=== PATIENT | male | born 1980 | race Caucasian/White ===

== ENCOUNTER 2017-06-24 08:25 | Day surgery (SDC) | payer BC ==
[2017-06-20 10:22] VITALS: BMI 33.2
[~2017-06-24 08:25] MED LIST: LACTATED RINGERS 1,000 ML IV SCH
[2017-06-24] MEDS ORDERED: LACTATED RINGERS 1,000 ML IV ONE (08:35)
[2017-06-24 08:36] VITALS: RESP 18; TEMP 98
[2017-06-24] MEDS ORDERED: LIDOCAINE 1% 20 ML VIAL (10MG/ML) FOR IV START INTRADERMA ONE (08:36)
[2017-06-24] MEDS ORDERED: LIDOCAINE 1% INJ 10MG/ML (20 ML MDV) ONE (09:24)
[2017-06-24] MEDS ORDERED: PROPOFOL 10 MG/ML 20 ML VIAL IV ONE (09:24)
--- NOTE | 2017-06-24 09:55 | P.PCN ---
Date of Procedure: 06/24/17 Preoperative Diagnosis: Postoperative Diagnosis: Procedure(s) Performed: Procedure: Total colonoscopy and biopsy. Preoperative diagnosis: History of rectal bleeding and recent bout of diverticulitis. Postoperative diagnosis: 1. Sigmoid diverticulosis with no evidence of acute diverticulitis or strictures. 2. Diminutive polyp in the rectum biopsied but no large polyps or cancer. 3. Low-grade internal hemorrhoids without bleeding at the time of this exam. Preparation: HalfLytely prep. Sedation: Was provided by anesthesia. Brief clinical history: The patient is a 36-year-old male who I have evaluated in the office in March because of recent bout of diverticulitis and finding of blood in his stools. No family history of colon cancer. This would be his first colonoscopy. Procedure: With the patient on his left lateral decubitus position and after informed consent and adequate sedation, the perianal area was inspected and it did not show any fissures or fistulas. There were no masses felt on digital rectal examination. The Olympus CFQ 160L video colonoscope was then inserted in the rectum in the usual fashion and advanced to the cecum. There were few small diverticular orifices seen scattered in the sigmoid with no evidence of acute diverticulitis or strictures. There was a diminutive polyp in the rectum close to the rectosigmoid junction which I biopsied but there were no large polyps or cancer. The mucosa appeared healthy with no evidence of spontaneous bleeding. I retroflexed the endoscope in the rectum before the endoscope was withdrawn. Low-grade internal hemorrhoids was noted but there was no evidence of bleeding. The patient tolerated the procedure well. Plan: The patient was reassured. Discussed dietary measures and local care for hemorrhoids. He will follow up with you as planned and I recommended repeat exam in 10 years. Implants: Indications for Procedure: Operative Findings: Description of Procedure:
[2017-06-24 10:03] VITALS: BP 134/94; PULSE 63
== END 2017-06-24 10:30 | disposition home or self-care (01) ==
LOC: ORWHC2ENDO 08:25
DX: K62.1 Rectal polyp (principal); K57.30 Diverticulosis of large intestine without perforation or abscess without bleeding; K64.8 Other hemorrhoids; Z79.1 Long term (current) use of non-steroidal anti-inflammatories (NSAID)
CPT/HCPCS: 88305; 45380; J2001; J2704

== ENCOUNTER 2018-08-08 00:23 | Emergency (ER) | payer BC ==
[2018-08-08 00:32] VITALS: RESP 18
--- NOTE | 2018-08-08 03:01 | ED ---
Skin/Abscess/FB HPI - General Chief complaint: Skin/Abscess/Foreign Body Stated complaint: facial swelling Time Seen by Provider: 08/08/18 02:26 Source: patient Mode of arrival: ambulatory Limitations: no limitations - History of Present Illness Initial comments: This patient is a 38-year-old man who presents to be evaluated for the development of facial pain and swelling. The patient has noted over approximately the past 24 hours that he is getting some swelling to the pre- maxillary area. MD complaint: abscess/boil Onset/Timin -: days(s) Tetanus Up to Date: yes Location: face Quality: aching Consistency: constant Improves with: none Worsens with: palpation Context: none Associated symptoms: denies other symptoms Treatments Prior to Arrival: none - Related Data Home Medications Medication Instructions Recorded Confirmed Ibuprofen [Motrin] 200 - 400 mg PO Q6HR PRN 09/25/16 06/20/17 Previous Rx's Medication Instructions Recorded Amoxicillin/Potassium Clav 1 tab PO Q12HR #14 tab 08/08/18 [Augmentin 875-125 Tablet] Allergies Allergy/AdvReac Type Severity Reaction Status Date / Time No Known Allergies Allergy Verified 08/08/18 00:31 Review of Systems ROS Statement: Those systems with pertinent positive or pertinent negative responses have been documented in the HPI. ROS Other: All systems not noted in ROS Statement are negative. Past Medical History Past Medical History: Renal Disease, Vascular Disorder Additional Past Medical History / Comment(s): hx blood in stool, mono at 18-18 years old History of Any Multi-Drug Resistant Organisms: None Reported Past Surgical History: No Surgical Hx Reported Past Anesthesia/Blood Transfusion Reactions: No Reported Reaction Past Psychological History: No Psychological Hx Reported Smoking Status: Current every day smoker Past Alcohol Use History: Occasional Past Drug Use History: None Reported - Past Family History Father Family Medical History: Diabetes Mellitus Mother Family Medical History: No Reported History General Exam Limitations: no limitations General appearance: alert, in no apparent distress Head exam: Present: atraumatic, normocephalic Eye exam: Present: normal appearance, PERRL, EOMI. Absent: scleral icterus, conjunctival injection, periorbital swelling, periorbital tenderness ENT exam: Present: other (Patient has a small amount of pre-maxillary warmth and edema. No discrete fluctuant area that is amenable to drainage. There is tenderness to palpation.) Neck exam: Present: normal inspection, full ROM. Absent: lymphadenopathy Respiratory exam: Present: normal lung sounds bilaterally. Absent: respiratory distress, wheezes, rales, rhonchi Cardiovascular Exam: Present: regular rate, normal rhythm, normal heart sounds. Absent: systolic murmur, diastolic murmur, rubs, gallop Skin exam: Present: warm, dry, intact, normal color. Absent: rash Course Vital Signs 08/08/18 08/08/18 00:27 03:28 Temperature 98.4 F 98.0 F Pulse Rate 71 74 Respiratory 18 18 Rate Blood Pressure 116/72 119/70 O2 Sat by Pulse 99 99 Oximetry Medical Decision Making - Medical Decision Making Patient's 38-year-old man with what appears to be odontogenic infection, probably early premaxillary abscess. There is no discrete area that may be drained at the moment. Patient started on antibiotics and we discussed appropriate further care and follow-up as well as return parameters. Disposition Clinical Impression: Facial abscess Disposition: HOME SELF-CARE Condition: Good Instructions: Abscess (ED) Prescriptions: Amoxicillin/Potassium Clav [Augmentin 875-125 Tablet] 1 tab PO Q12HR #14 tab Is patient prescribed a controlled substance at d/c from ED?: No Referrals: Matthew Sanders DO [Primary Care Provider] - 1-2 days Ryan Ramey MD [STAFF PHYSICIAN] - 1-2 days
[2018-08-08] MEDS ORDERED: ACET/COD 300 MG/30 MG STARTER PACK 6 TAB BTL PO STA (03:02)
[2018-08-08] MEDS ORDERED: AMOXIC-POT CLAV 875MG STARTER 2 EACH TABLET PO STA (03:02)
[2018-08-08 03:29] VITALS: BP 119/70; PULSE 74; TEMP 98
--- NOTE | 2018-08-09 07:53 | CDI ---
Documentation Clarification OP Dear Kory SANCHEZ MD Please do addendum to ED report for Physical exam and MDM. Thank you, Shruti Montes Diesel Engineer If you have any question, Please contact patient services manager at [phone] [facility]
== END 2018-08-08 03:22 | disposition home or self-care (01) ==
LOC: EC 00:23
DX: L02.01 Cutaneous abscess of face (principal); F17.200 Nicotine dependence, unspecified, uncomplicated
CPT/HCPCS: 99283

== ENCOUNTER → 2019-08-19 | Outpatient (CLI) | payer BC ==
--- NOTE | 2019-08-19 09:48 | XR ---
EXAMINATION TYPE: XR chest 2V DATE OF EXAM: 08/19/2019 COMPARISON: NONE HISTORY: Chest pain TECHNIQUE: Frontal and lateral views of the chest are obtained. FINDINGS: There is no focal air space opacity. No evidence for pneumothorax. No pleural effusion. The cardiac silhouette size is within normal limits. The osseous structures are grossly intact. IMPRESSION: 1. No acute cardiopulmonary process.
== END | disposition home or self-care (01) ==
LOC: RADXRYALE 08:57
PROVIDERS: ATTEND Physician Assistant Medical
DX: R05 Cough (principal); F17.210 Nicotine dependence, cigarettes, uncomplicated
CPT/HCPCS: 71046

== ENCOUNTER → 2019-08-27 | Outpatient (CLI) | payer BC ==
--- NOTE | 2019-08-27 17:41 | EST ---
EXERCISE STRESS AGE: 39 SEX: Male HT: 73 WT: 248 PROTOCOL: Sha STAGE: IV DURATION OF EXERCISE: 10:00 HEART RATE REST: 82 BLOOD PRESSURE REST: 160/88 MAXIMUM HEART RATE ACHIEVED: 155 MAXIMUM BLOOD PRESSURE: 175/98 85% MPHR: 153 100% MPHR: 180 METS: 11.7 INDICATIONS: Chest pain. CLINICAL INFORMATION: This is a 39-year-old male patient referred by Dr. Matthew Sanders for an exercise stress echo. Baseline heart rate 82 beats per minute. Baseline blood pressure 160/88 mmHg. Baseline 12-lead ECG showed normal sinus rhythm with normal cardiac intervals. Patient exercised on a Sha protocol for 10 minutes, achieving a peak heart rate of 155 beats per minute, normal blood pressure response. There was no ECG evidence for ischemia. No arrhythmias noted. The baseline 2D echo images showed normal LV size and systolic function without segmental wall motion abnormalities. At peak exercise there was excellent augmentation of overall LV contractility without development of any wall motion abnormalities. At recovery, regional global LV systolic function remained normal. IMPRESSION: No ECG or echocardiographic evidence for ischemia. MMODL / IJN: [id number] /
== END | disposition home or self-care (01) ==
LOC: RADNMMAIN 08:43
PROVIDERS: ATTEND Family Medicine
DX: R07.9 Chest pain, unspecified (principal)
CPT/HCPCS: 93017

== ENCOUNTER 2020-03-24 12:35 | Day surgery (SDC) | payer BC ==
[2020-03-24 13:43] VITALS: RESP 18; TEMP 98.3
[2020-03-24 14:28] VITALS: BP 118/76; PULSE 70
--- NOTE | 2020-03-24 14:56 | US ---
ULTRASOUND GUIDED CORE BIOPSY RIGHT SUBMANDIBULAR MASS: CLINICAL HISTORY: Right submandibular mass FINDINGS: The procedure was explained to the patient. The risks, complications, benefits and alternatives were discussed and any questions were answered. Informed consent was obtained. Patient was placed supin e on the ultrasound table and prepped and draped in the usual sterile fashion. Utilizing a 18-gauge core biopsy needle, 3 passes were made into the requested mass. Patient was stable throughout the procedure. Pathology is pending. All elements of maximal barrier and sterile technique were utilized. IMPRESSION: 1. Successful ultrasound guided core biopsy of the requested right neck mass.
== END 2020-03-24 14:20 | disposition home or self-care (01) ==
LOC: RADPROMAIN 12:35
PROVIDERS: ATTEND Otolaryngology
DX: R22.1 Localized swelling, mass and lump, neck (principal)
CPT/HCPCS: 10005; 20206; 88305

== ENCOUNTER 2020-05-04 07:11 | Day surgery (SDC) | payer BC ==
[2020-05-02 11:18] VITALS: BMI 32.7
[~2020-05-04 07:11] MED LIST changes: +DEXAMETHASONE SOD PHOSPHATE 10 MG/ML 1 ML VIAL IV ONE; +FAMOTIDINE 20 MG/2 ML VIAL IV ONE; -LACTATED RINGERS 1,000 ML IV SCH; +ONDANSETRON 4 MG/2 ML VIAL IVP ONE
[2020-05-04] MEDS ORDERED: LIDOCAINE 1% (10MG/ML) FOR IV START INTRADERMA ONE (07:45)
[2020-05-04] MEDS ORDERED: LACTATED RINGERS 1,000 ML IV ONE (07:46)
[2020-05-04] MEDS ORDERED: ONDANSETRON 4 MG/2 ML VIAL ONE (07:47)
[2020-05-04] MEDS ORDERED: DEXAMETHASONE SOD PHOSPHATE 10 MG/ML 1 ML VIAL ONE (08:42)
[2020-05-04] MEDS ORDERED: MIDAZOLAM 2 MG/2 ML VIAL ONE (08:42)
[2020-05-04] MEDS ORDERED: LIDOCAINE 1% INJ 10MG/ML (20 ML MDV) ONE (08:42)
[2020-05-04] MEDS ORDERED: SUCCINYLCHOLINE CHLORIDE VIAL 200 MG/10 ML VIAL IV ONE (08:42)
[2020-05-04] MEDS ORDERED: PROPOFOL 10 MG/ML 20 ML VIAL IV ONE (08:42)
[2020-05-04] MEDS ORDERED: fentaNYL (PF) 50 MCG/ML 2 ML AMP ONE (08:42)
[2020-05-04] MEDS ORDERED: LIDOCAINE 1%-EPI 1:100,000 20 ML VIAL SQ ONE ×2 (09:08)
--- NOTE | 2020-05-04 10:09 | P.OP ---
Date of Procedure: 05/04/20 Preoperative Diagnosis: Right cervical lymphadenopathy Postoperative Diagnosis: Same Procedure(s) Performed: Excision right cervical lymph nodes Anesthesia: PEDRO Surgeon: John Hayes Estimated Blood Loss (ml): 5 Pathology: other (Right cervical lymph node) Condition: stable Disposition: PACU Indications for Procedure: Is a 39-year-old white male who is a progressively enlarging right cervical lymph node. He's had biopsies on 2 different occasions including core biopsy which is felt to be benign. Despite this, this progressively enlarges. Operative Findings: Approximate 5 cm right cervical lymph node inferior to submandibular gland which is well-circumscribed, 2 additional adjacent lymph nodes each 1.5 x 2 cm also excised Description of Procedure: The patient was brought in the operative suite and placed in a supine position. The patient underwent induction of general anesthesia with oral endotracheal intubation without difficulty. The patient was prepped and draped in usual aseptic fashion. 1% lidocaine with 1-100,000 epinephrine was infused subcutaneously at the incision site. Incision was then made right transverse cervical 3 fingerbreadths below the body of the mandible and carried sharply through the skin and subcutaneous tissue and platysma layer. The largest of the lymph nodes was encountered and was dissected from the surrounding tissue grossly entirely. The marginal mandibular branch of the facial nerve was identified. The wound and was left intact. Larger vessels were doubly clamped divided and tied with 3-0 Vicryl ties. There were 2 additional lymph nodes adjacent which appeared similar well-circumscribed as described above and these were excised separately also. The specimens were sent fresh for routine histology cultures flow cytometry and touch preps. The nodes were inferior to the submandibular gland. No other additional nodes were noted. The wound was irrigated copiously with sterile normal saline and there was excellent hemostasis noted. A 1/4 inch Vera drain was placed through the inferior aspect of the incision and the wound was closed in multiple layers including the platysma with 3-0 Vicryl suture the subcutaneous layer with inverted interrupted 4-0 Vicryl suture and the skin with running locking 4-0 Prolene suture. The drain was sutured to the skin with 4-0 Prolene suture. A light pressure dressing was placed. Excellent hemostasis noted. The patient was allowed to emerge from general anesthesia having tolerated procedure well was extubated in the operating suite and transferred to postop recovery area in satisfactory condition.
[2020-05-04 10:21] VITALS: TEMP 97.8
[2020-05-04 10:43] VITALS: RESP 16
[2020-05-04] MEDS ORDERED: HYDROcodone/APAP 7.5-325MG 1 EACH TAB ONE (11:04)
[2020-05-04] MEDS ORDERED: HYDROcodone/APAP 7.5-325MG 1 EACH TAB PO ONE (11:08)
[2020-05-04 11:26] VITALS: BP 136/84; PULSE 70
== END 2020-05-04 11:40 | disposition home or self-care (01) ==
LOC: OR 07:11
PROVIDERS: ATTEND Otolaryngology
DX: R59.0 Localized enlarged lymph nodes (principal); F17.210 Nicotine dependence, cigarettes, uncomplicated; E66.01 Morbid (severe) obesity due to excess calories; Z68.34 Body mass index [BMI] 34.0-34.9, adult; Z88.0 Allergy status to penicillin; Z79.52 Long term (current) use of systemic steroids; Z91.09 Other allergy status, other than to drugs and biological substances; Z82.49 Family history of ischemic heart disease and other diseases of the circulatory system
CPT/HCPCS: 38510; 88342; 88307; 88341; 87070; 87205; 87075; 87102; J2250; J0330; J1100; J2405; J0690; J2001; J3010; J2704

== ENCOUNTER → 2022-01-30 | Outpatient (CLI) | payer BC ==
--- NOTE | 2022-01-30 22:19 | CT ---
EXAMINATION TYPE: CT soft tissue neck w con DATE OF EXAM: 01/30/2022 6:26 PM COMPARISON: CT dated 11/02/2013 HISTORY: lump on RT side of neck CT DLP: 764 mGycm Automated exposure control for dose reduction was used. CONTRAST: CT scan of the neck is performed following with IV Contrast, patient injected with 100ml mL of Isovue 300. Axial images are obtained, coronal and sagittal reformatted images are reviewed. FINDINGS: A marker was placed at the area of interest. A well-defined soft tissue lesion is seen at the area of interest measuring 3.6 x 2.7 x 4.4 cm likely representing an enlarged right submandibular lymph node . Other enlarged right cervical and submandibular lymph nodes are also seen. For example, a more ante rior right submandibular lymph node measures 8mm. A right level 2 lymph node measures 2.1 cm. A more inferior right cervical lymph node measures 1.3 cm. Subcentimeter left cervical and submandibular lym ph nodes. No central necrosis or calcification seen within the enlarged lymph nodes. Prominent nasopharyngeal soft tissue yet still symmetrical. Slightly prominent palatine tonsils with tiny left-sided calcifications. Unremarkable remainder of the pharynx, larynx, trachea and visualized portion of the esophagus. Unremarkable symmetrical parotid and submandibular salivary glands. No maged ss thyroid gland lesion. Patent major neck vessels. No aggressive bone lesion. IMPRESSION: Enlarged right submandibular and right cervical lymph nodes as described above which could be related to lymphoma or lymphoproliferative disease however metastatic lymph nodes of unknown primary can't b e excluded. Recommend clinical correlation and further workup. Further PET scan assessment can be con sidered. Other findings as described above.
== END | disposition home or self-care (01) ==
LOC: RADCTMAIN 17:47
PROVIDERS: ATTEND Otolaryngology
DX: R59.0 Localized enlarged lymph nodes (principal)
CPT/HCPCS: 70491; Q9967

== ENCOUNTER 2022-03-05 12:45 | Day surgery (SDC) | payer BC ==
[2022-03-05 13:10] VITALS: RESP 20; TEMP 98.2
--- NOTE | 2022-03-05 14:47 | US ---
EXAMINATION TYPE: US biopsy lymph node DATE OF EXAM: 03/05/2022 HISTORY: Submandibular adenopathy. correlation to CT 01/30/2022 FINDINGS: Maximal barrier technique was utilized. Hand hygiene achieved with alcohol-based hand rub. The skin overlying a suitable path to the patient's mandibular adenopathy in the right neck was loca lized with ultrasound and the overlying skin prepped and draped. Ultrasound was utilized with steril e technique. Lidocaine was used for local anesthesia. A skin jg was made with a scalpel. An 18-g auge needle was advanced under direct ultrasound guidance and core specimen obtained of the mass. 2 p asses were made. Specimen submitted on sterile wet Telfa and in formalin to Pathology. Following th e procedure, hemostasis achieved and the patient is discharged in stable condition without complicati on. IMPRESSION:STATUS POST ULTRASOUND GUIDED CORE BIOPSY RIGHT SUBMANDIBULAR ADENOPATHY, PATHOLOGY IS EDELMIRA DING. THIS PROCEDURE IS PERFORMED BY THE UNDERSIGNED.
[2022-03-05 14:56] VITALS: BP 131/91; PULSE 67
== END 2022-03-05 14:40 | disposition home or self-care (01) ==
LOC: RADPROMAIN 12:45
PROVIDERS: ATTEND Otolaryngology
DX: R22.1 Localized swelling, mass and lump, neck (principal)
CPT/HCPCS: 38505; 76942; 88305; 88341; 88342

== ENCOUNTER → 2024-01-20 | Outpatient (CLI) | payer BC ==
[2024-01-20 20:36] LABS: Basophils # (A) 0.12 X 10*3/uL (0.00-0.10); Basophils % (A) 1.1 %; Eosinophils % (A) 1.9 %; HCT 46.1 % (37.2-50.0); HGB 16.2 g/dL (12.0-17.0); Lymphocytes # (A) 2.26 X 10*3/uL (0.90-5.00); Lymphocytes % (A) 21.6 %; MCH 31.6 pg (27.0-32.0); MCHC 35.1 g/dL (32.0-37.0); Mean Platelet Volume 10.6 FL (9.5-12.2); Monocytes # (A) 0.74 X 10*3/uL (0.20-1.00); Monocytes % (A) 7.1 %; NRBC Per 100 WBC 0 X 10*3/uL (0.00-0.01); Neutrophils % (A) 67.9 %; Platelet Count 218 X 10*3/uL (140-440); RBC 5.12 X 10*6/uL (4.10-5.60); RDW 12.5 % (11.5-14.5); WBC 10.46 X 10*3/uL (4.50-10.00)
[2024-01-20 21:20] LABS: Erythrocyte Sedimentation Rate 5 mm/Hr (0-20)
[2024-01-20 21:24] LABS: ALT 38 U/L (8-49); AST 23 U/L (13-35); Albumin 4.7 g/dL (3.8-4.9); Albumin/Globulin Ratio 2.04 Ratio (1.60-3.17); Alkaline Phosphatase 86 U/L (41-126); BUN/Creat Ratio 14.22 Ratio (12.00-20.00); Blood Urea Nitrogen 12.8 mg/dL (9.0-27.0); C Reactive Protein <0.30 mg/dL (0.00-0.80); Calcium 9.9 mg/dL (8.7-10.3); Carbon Dioxide 24.5 mmol/L (21.6-31.8); Chloride 104 mmol/L (96-109); Globulin 2.3 g/dL (1.6-3.3); Glucose 84 mg/dL (70-110); Potassium 4.1 mmol/L (3.5-5.5); Sodium 139 mmol/L (135-145); Total Bilirubin 0.5 mg/dL (0.3-1.2)
[2024-01-20 21:30] LABS: Hepatitis B Surface Antigen Nonreactive (Nonreactive)
[2024-01-20 21:52] LABS: HIV 2 AB Non-Reactive (Non-Reactive); HIV AB P24 Non-Reactive (Non-Reactive); HIV P24 AG Non-Reactive (Non-Reactive)
[2024-01-21 19:04] LABS: ANA Pattern Speckled; ANA Pattern 2 Homogenous
== END | disposition home or self-care (01) ==
LOC: LABWHC1 16:29
PROVIDERS: ATTEND Internal Medicine Infectious Disease
DX: D10.9 Benign neoplasm of pharynx, unspecified (principal); D41.4 Neoplasm of uncertain behavior of bladder
CPT/HCPCS: 36415; 80053; 85025; 85652; 86038; 86039; 86140; 86480; 86780; 87340; 87390

== ENCOUNTER → 2024-01-24 | Outpatient (CLI) | payer BC ==
--- NOTE | 2024-01-24 18:16 | CT ---
EXAMINATION TYPE: CT soft tissue neck w con CT DLP: 721 mGycm, Automated exposure control for dose reduction was used. DATE OF EXAM: 01/24/2024 5:06 PM COMPARISON: 01/30/2022. CLINICAL INDICATION:Male, 43 years old with history of R22.1 LOCALIZED SWELLING MASS SABRINA MP; PHH, Retu rning growth on right side of neck, non cancerous biospies- r/o infection TECHNIQUE: Standard enhanced CT of the neck. Axial sections with coronal and sagittal reformats were obtained. Contrast used:100 cc mL of Isovue 300 with IV Contrast, (None if empty) Oral contrast used: (None if empty) FINDINGS: Brain: Visualized portions are grossly unremarkable. Orbits: Unremarkable Sinuses: Grossly unremarkable. Spaces of the neck: * Enlarged lymph nodes in the right submandibular region measuring up to 24 mm in short axis, previo usly 14 mm. * Enlarged lymph nodes seen on prior in the right neck no longer visualized. Possibly surgically abs ent. * Lower neck lymph node measuring 15 mm, previously 13 mm. In Musculoskeletal: No acute osseous pathology. Lymph nodes: Other nonenlarged lymph nodes are seen along both anterior chains of the neck. Vascular structures: Visualized major arteries are patent without evidence of aneurysm. Thoracic Inlet/airway: Airway is patent. The lung apices are clear. Soft tissues/Thyroid: Thyroid and remainder of the soft tissues are unremarkable. Other: none. IMPRESSION Enlarging right neck lymph nodes with suspected postsurgical removal of prior lymph nodes. No definit tanya evidence for infection. Consider tissue sampling.
== END | disposition home or self-care (01) ==
LOC: RADCTMAIN 15:49
PROVIDERS: ATTEND Internal Medicine Infectious Disease
DX: R22.1 Localized swelling, mass and lump, neck (principal)
CPT/HCPCS: 70491; Q9967

== ENCOUNTER 2024-03-22 03:06 | Emergency (ER) | payer BC ==
[2024-03-22 03:26] VITALS: BP 158/109; PULSE 71; RESP 20; TEMP 97.6
--- NOTE | 2024-03-22 03:54 | ED ---
General Adult HPI - General Chief complaint: Skin/Abscess/Foreign Body Stated complaint: Constipation, anal pain Time Seen by Provider: 03/22/24 03:20 Source: patient Mode of arrival: ambulatory Limitations: no limitations - History of Present Illness Initial comments: 43-year-old male who presents emergency department reporting rectal pain. Patient states that he was attempting to have a bowel movement earlier today when he felt something protruding from his bottom. He was unsure if it was a hemorrhoid. States that he has had rectal pain since the bowel movement. He denies any black or bloody bowel movements. He has not taken anything for the pain. No changes in his bladder habits. No other alleviating, precipitating modifying factors - Related Data Previous Rx's Medication Instructions Recorded Docusate [Colace] 100 mg PO BID #40 capsule 03/22/24 Hydrocortisone Pr Cream 1 applic RECTAL BID #28 gm 03/22/24 [Proctosol-Hc 2.5%] witch Maribell [Tucks Medicated Pads] 1 pad TOPICAL TID PRN #30 pad 03/22/24 Allergies Allergy/AdvReac Type Severity Reaction Status Date / Time amoxicillin AdvReac Rash/Hives Verified 03/22/24 03:15 Review of Systems ROS Statement: Those systems with pertinent positive or pertinent negative responses have been documented in the HPI. ROS Other: All systems not noted in ROS Statement are negative. Past Medical History Past Medical History: No Reported History, Hypertension Additional Past Medical History / Comment(s): Hx [place] at 18-18 years old, enlarged lymph node right neck. History of Any Multi-Drug Resistant Organisms: None Reported Past Surgical History: No Surgical Hx Reported Additional Past Surgical History / Comment(s): Colonoscopy. kidney stone with lithotripsy and stent placement Past Anesthesia/Blood Transfusion Reactions: No Reported Reaction Past Psychological History: No Psychological Hx Reported Smoking Status: Current every day smoker Past Alcohol Use History: Rare Past Drug Use History: None Reported - Past Family History Father Family Medical History: Diabetes Mellitus Mother Family Medical History: No Reported History sister Family Medical History: Thyroid Disorder General Exam Limitations: no limitations Head exam: Present: atraumatic, normocephalic, normal inspection GI/Abdominal exam: Present: soft, normal bowel sounds. Absent: distended, tenderness, guarding, rebound, rigid Rectal exam: Present: hemorrhoids. Absent: black stool, bloody stool Course Vital Signs 03/22/24 03:16 Temperature 97.6 F Pulse Rate 71 Respiratory 20 Rate Blood Pressure 158/109 O2 Sat by Pulse 96 Oximetry Medical Decision Making - Medical Decision Making Was pt. sent in by a medical professional or institution (, PEEWEE, OCULAR PATHOLOGIST, urgent care, hospital, or assisted...) When possible be specific @ -No Did you speak to anyone other than the patient for history (EMS, parent, family, police, friend...)? What history was obtained from this source @ -No Did you review nursing and triage notes (agree or disagree)? Why? @ -I reviewed and agree with nursing and triage notes Were old charts reviewed (outside hosp., previous admission, EMS record, old EKG, old radiological studies, urgent care reports/EKG's, assisted records)? Report findings @ -No old charts were reviewed Differential Diagnosis (chest pain, altered mental status, abdominal pain women, abdominal pain men, vaginal bleeding, weakness, fever, dyspnea, syncope, headache, dizziness, GI bleed, back pain, seizure, CVA, palpatations, mental health, musculoskeletal)? @ -hemorrhoidinternal, hemorrhoidexternal, rectal prolapse, rectal mass EKG interpreted by me (3pts min.). @ -Not done X-rays interpreted by me (1pt min.). @ -None done CT interpreted by me (1pt min.). @ -None done U/S interpreted by me (1pt. min.). @ -None done What testing was considered but not performed or refused? (CT, X-rays, U/S, labs)? Why? @ -None What meds were considered but not given or refused? Why? @ -None Did you discuss the management of the patient with other professionals (professionals i.e. PEEWEE Hernandez, OCULAR PATHOLOGIST, lab, RT, psych nurse, social science teacher, guard range, teacher, hydrographical technical officer, family preservation caseworker)? Give summary @ -No Was smoking cessation discussed for >3mins.? @ -No Was critical care preformed (if so, how long)? @ -No Were there social determinants of health that impacted care today? How? (Homelessness, low income, unemployed, alcoholism, drug addiction, transportation, low edu. Level, literacy, decrease access to med. care, assisted, rehab)? @ -No Was there de-escalation of care discussed even if they declined (Discuss DNR or withdrawal of care, Hospice)? DNR status @ -No What co-morbidities impacted this encounter? (DM, HTN, Smoking, COPD, CAD, Cancer, CVA, ARF, Chemo, Hep., AIDS, mental health diagnosis, sleep apnea, morbid obesity)? @ -None Was patient admitted / discharged? Hospital course, mention meds given and route, prescriptions, significant lab abnormalities, going to OR and other pertinent info. @ -Upon arrival patient seen and evaluated in room 19. Thorough history and physical exam was performed. Patient does have a external hemorrhoid. I did discuss the treatment options. Also highly recommended to avoid constipation. Patient will be discharged home with prescriptions for treatment of hemorrhoid. Instructed to follow-up with his primary care doctor and return for any new or worsening symptoms. Patient agreeable plan was discharged in stable condition Undiagnosed new problem with uncertain prognosis? @ -No Drug Therapy requiring intensive monitoring for toxicity (Heparin, Nitro, Insulin, Cardizem)? @ -No Were any procedures done? @ -No Diagnosis/symptom? @ -Acute rectal pain, acute external hemorrhoid Acute, or Chronic, or Acute on Chronic? @ -Acute Uncomplicated (without systemic symptoms) or Complicated (systemic symptoms)? @ -Uncomplicated Side effects of treatment? @ -No Exacerbation, Progression, or Severe Exacerbation? @ -No Poses a threat to life or bodily function? How? (Chest pain, [place], [place], pneumonia, PE, COPD, DKA, ARF, appy, cholecystitis, CVA, Diverticulitis, Homicidal, Suicidal, threat to staff... and all critical care pts) @ -No Disposition Clinical Impression: Hemorrhoid Disposition: HOME SELF-CARE Condition: Stable Instructions (If sedation given, give patient instructions): Hemorrhoids (ED), Sitz Bath (DC) Additional Instructions: Take the Colace and Miralax as directed to help keep your bowel movements soft. Use the prescribed cream twice a day. May continue to use Preparation H for pain control. I also recommend sitz bath's. Instructions have been attached. Follow-up with your primary care doctor and return for any new or worsening symptoms Prescriptions: Docusate [Colace] 100 mg PO BID #40 capsule Hydrocortisone Pr Cream [Proctosol-Hc 2.5%] 1 applic RECTAL BID #28 gm herb Reyna [Tucks Medicated Pads] 1 pad TOPICAL TID PRN #30 pad PRN Reason: Pain Is patient prescribed a controlled substance at d/c from ED?: No Referrals: Matthew Sanders DO [Primary Care Provider] - 1-2 days Time of Disposition: 03:53
[2024-03-22] MEDS ORDERED: HYDROCORTISONE 2.5% RECTAL CREAM 30 GM TUBE RECTAL SCH (09:00)
== END 2024-03-22 04:09 | disposition home or self-care (01) ==
LOC: EC 03:06
DX: K64.9 Unspecified hemorrhoids (principal); F17.200 Nicotine dependence, unspecified, uncomplicated; Z88.0 Allergy status to penicillin
CPT/HCPCS: 99283